=== PATIENT | male | born 1985 | race African-American/Black ===

== ENCOUNTER 2022-08-02 20:40 | Emergency (ER) | payer OTHER ==
[2022-08-02] MEDS ORDERED: KETOROLAC TROMETHAMINE 60 MG/2 ML VIAL IM ONE (20:46)
[2022-08-02] MEDS ORDERED: KETOROLAC TROMETHAMINE 60 MG/2 ML VIAL ONE (20:48)
[2022-08-02 21:08] VITALS: BP 134/84; PULSE 90; RESP 16; TEMP 98.8; BMI 31.0
== END 2022-08-02 21:24 | disposition home or self-care (01) ==
LOC: FER 20:40
PROC: 0RSXXZZ Reposition Left Finger Phalangeal Joint, External Approach (ICD-10-PCS; principal; 2022-08-02)
PROC: 3E023GC Introduction of Other Therapeutic Substance into Muscle, Percutaneous Approach (ICD-10-PCS; 2022-08-02)
DX: S63.257A Unspecified dislocation of left little finger, initial encounter (principal); W23.0XXA Caught, crushed, jammed, or pinched between moving objects, initial encounter
CPT/HCPCS: 73140-TC-LT-FY; 99284-25